=== PATIENT | female | born 1950 | race Caucasian/White ===

== ENCOUNTER → 2016-11-05 | Outpatient (CLI) | payer OTHER, SELFPAY ==
[~2016-11-05] MED LIST: DITROPAN 5 MG TA5 MG PO; GAS RELIEF125 M1 PO; LEVEMIR100 UNIT/1 SC; LEVOCETIRIZINE D5 MG PO; LEVOTHYROXINE88 MCG PO; LOPRESSOR100 MG PO; MIRALAX17 GM PO; NORCO 5-325 TA1 EACH PO; NORVASC 5 MG TAB5 MG PO; NOVOLOG 10100 UNITS/ SC; ONDANSETRON HCL4 MG PO; PLAVIX 75 MG TA75 MG PO; PRAVASTATIN SOD80 MG PO; TRAMADOL HCL50 MG PO; VITAMIN D 11000 UNIT PO; ZESTRIL 40 MG T40 MG PO
[2016-11-05 09:54] LABS: HEMOGLOBIN 11.5 gm/dl (12.3-15.3); RED BLOOD COUNT 3.99 M/UL (4.00-5.10); WHITE BLOOD COUNT 6.6 K/UL (4.5-11.0)
== END ==
LOC: OPSV2 11-04 08:30
PROVIDERS: Orthopaedic Surgery
DX: Z01.810 Encounter for preprocedural cardiovascular examination (principal); Z01.812 Encounter for preprocedural laboratory examination; M65.30 Trigger finger, unspecified finger; E11.9 Type 2 diabetes mellitus without complications; I10 Essential (primary) hypertension; E05.90 Thyrotoxicosis, unspecified without thyrotoxic crisis or storm
CPT/HCPCS: 80048; 85027; 93005

== ENCOUNTER → 2016-11-10 | Day surgery (SDC) | payer OTHER, SELFPAY ==
[~2016-11-10] VITALS: Ht 154.9 cm; Wt 102.5 kg
== END | disposition home or self-care (01) ==
LOC: OR 08:02 → EDSTATUS 08:28
PROC: 0LN80ZZ Release Left Hand Tendon, Open Approach (ICD-10-PCS; principal; 2016-11-10)
DX: M65.332 Trigger finger, left middle finger (principal); E78.5 Hyperlipidemia, unspecified; J45.909 Unspecified asthma, uncomplicated; M81.0 Age-related osteoporosis without current pathological fracture; I12.9 Hypertensive chronic kidney disease with stage 1 through stage 4 chronic kidney disease, or unspecified chronic kidney disease; E11.22 Type 2 diabetes mellitus with diabetic chronic kidney disease; N18.3 Chronic kidney disease, stage 3 (moderate); E89.2 Postprocedural hypoparathyroidism; G47.30 Sleep apnea, unspecified; G89.29 Other chronic pain; Z88.2 Allergy status to sulfonamides; Z86.19 Personal history of other infectious and parasitic diseases; Z88.8 Allergy status to other drugs, medicaments and biological substances; Z79.02 Long term (current) use of antithrombotics/antiplatelets; Z79.891 Long term (current) use of opiate analgesic; Z79.899 Other long term (current) drug therapy; Z90.710 Acquired absence of both cervix and uterus; Z85.828 Personal history of other malignant neoplasm of skin; Z87.440 Personal history of urinary (tract) infections; Z86.73 Personal history of transient ischemic attack (TIA), and cerebral infarction without residual deficits
CPT/HCPCS: 82962; J1885; J2250; J3010; J7030; J7120